=== PATIENT | male | born 1955 | race Caucasian/White ===

== ENCOUNTER → 2023-06-28 08:51 | Outpatient (REF) | payer OTHER, SELFPAY | LOC: RAD 08:51 | PROVIDERS: ATTENDING PHYSICIAN Specialist; FAMILY PHYSICIAN Family Medicine | DX: N18.4 Chronic kidney disease, stage 4 (severe) (principal); I10 Essential (primary) hypertension; N17.9 Acute kidney failure, unspecified | CPT/HCPCS: 76770 ==

== ENCOUNTER 2024-02-24 06:12 | Day surgery (SDC) | payer OTHER, SELFPAY ==
[2024-02-22 11:26] LABS: Hematocrit 30.9 % (39.0-52.0); Hemoglobin 10.6 g/dL (13.0-18.0); Mean Corp Hgb Conc. 34.3 g/dL (33.0-37.0); Mean Corpuscular Hgb 34.2 pg (27.0-31.0); Mean Corpuscular Volume 99.7 fL (80.0-94.0); Mean Platelet Volume 9.6 fL (7.4-10.4); Platelet Count 162 10^3/uL (130-400); Red Cell Dist. Width 13.8 % (11.5-14.5)
[2024-02-22 12:15] VITALS: BMI 24.2
[2024-02-22 12:22] LABS: Blood Urea Nitrogen 44 mg/dl (9-20); Calcium 8.5 mg/dl (8.4-10.2); Carbon Dioxide 21 mmol/L (22-30); Chloride 99 mmol/L (98-107); Estimated Creatinine Clearance 17 ml/min; Glucose 101 mg/dl (70-99); Potassium 4.1 mmol/L (3.5-5.1); Sodium 133 mmol/L (135-145); eGFR 16.73
--- NOTE | 2024-02-22 15:50 | PTCARENOTE ---
Patients 02/21 Creat 3.8- GFR 16.73- Shruti @ Dr. Bennett office notified
[2024-02-24] VITALS (8 sets, daily range): BP systolic 110–126; BP diastolic 60–75; BMI 24.2
[2024-02-24] MEDS: Pyridium 200 MG PO (06:28)
== END 2024-02-24 09:40 | disposition home or self-care (01) ==
LOC: SDS 06:12
PROVIDERS: ATTENDING PHYSICIAN Specialist; FAMILY PHYSICIAN Family Medicine; OTHER PHYSICIAN Urology
DX: N31.9 Neuromuscular dysfunction of bladder, unspecified (principal); N13.70 Vesicoureteral-reflux, unspecified; N40.1 Benign prostatic hyperplasia with lower urinary tract symptoms
CPT/HCPCS: 52281; 36415; 80048; 85027; 93005; J0585

== ENCOUNTER → 2024-05-08 08:55 | Outpatient (REF) | payer OTHER, SELFPAY | LOC: RAD 08:55 | PROVIDERS: ATTENDING PHYSICIAN Surgery Vascular Surgery; FAMILY PHYSICIAN Family Medicine; OTHER PHYSICIAN Urology | DX: L98.8 Other specified disorders of the skin and subcutaneous tissue (principal); N31.9 Neuromuscular dysfunction of bladder, unspecified; N13.70 Vesicoureteral-reflux, unspecified; N13.39 Other hydronephrosis; N31.8 Other neuromuscular dysfunction of bladder | CPT/HCPCS: 76775; 93985 ==

== ENCOUNTER 2024-05-12 06:23 | Day surgery (SDC) | payer OTHER, SELFPAY | END 2024-05-12 10:52 | disposition home or self-care (01) | LOC: GI 06:23 | PROVIDERS: ATTENDING PHYSICIAN Specialist | DX: Z12.11 Encounter for screening for malignant neoplasm of colon (principal); D64.9 Anemia, unspecified; K57.30 Diverticulosis of large intestine without perforation or abscess without bleeding; D12.0 Benign neoplasm of cecum | CPT/HCPCS: G0121 ==

== ENCOUNTER → 2024-05-15 08:47 | Outpatient (REF) | payer OTHER, SELFPAY | LOC: RCS 08:47 | PROVIDERS: ATTENDING PHYSICIAN Internal Medicine Cardiovascular Disease; FAMILY PHYSICIAN Family Medicine | DX: N18.4 Chronic kidney disease, stage 4 (severe) (principal); Z76.82 Awaiting organ transplant status | CPT/HCPCS: 93306 ==

== ENCOUNTER → 2024-05-16 07:24 | Outpatient (REF) | payer OTHER, SELFPAY | LOC: HWRCS 07:24 | PROVIDERS: ATTENDING PHYSICIAN Internal Medicine Cardiovascular Disease; FAMILY PHYSICIAN Family Medicine | DX: N18.4 Chronic kidney disease, stage 4 (severe) (principal); Z76.82 Awaiting organ transplant status | CPT/HCPCS: 78452; 93017; A9500; J2785 ==

== ENCOUNTER 2024-05-30 06:13 | Day surgery (SDC) | payer OTHER, SELFPAY ==
[2024-05-30 11:20] VITALS: BMI 23.4
[2024-05-30 11:21] VITALS: BP 138/70
[2024-05-30 13:01] VITALS: BP 115/77
[2024-05-30 13:15] VITALS: BP 125/71
[2024-05-30 13:30] VITALS: BP 140/76
== END 2024-05-30 13:45 | disposition home or self-care (01) ==
LOC: SDS 06:13
PROVIDERS: ATTENDING PHYSICIAN Internal Medicine Gastroenterology
DX: D12.0 Benign neoplasm of cecum (principal); K64.0 First degree hemorrhoids
CPT/HCPCS: 45390; 88305

== ENCOUNTER 2024-11-07 06:03 | Day surgery (SDC) | payer OTHER, SELFPAY ==
[2024-11-03 14:14] VITALS: BMI 23.0
[2024-11-03 14:42] LABS: Hematocrit 28.7 % (39.0-52.0); Hemoglobin 10.1 g/dL (13.0-18.0); Mean Corp Hgb Conc. 35.2 g/dL (33.0-37.0); Mean Corpuscular Volume 94.4 fL (80.0-94.0); Platelet Count 188 10^3/uL (130-400); Red Cell Dist. Width 13.0 % (11.5-14.5)
[2024-11-07] VITALS (7 sets, daily range): BP systolic 112–127; BP diastolic 59–70; BMI 23.0
[2024-11-07] MEDS: NORMOSOL-R/PLASMALYTE-A 1000 IV (07:10)
== END 2024-11-07 09:30 | disposition home or self-care (01) ==
LOC: SDS 06:03
PROVIDERS: ATTENDING PHYSICIAN Specialist; FAMILY PHYSICIAN Family Medicine
DX: N35.919 Unspecified urethral stricture, male, unspecified site (principal); N31.9 Neuromuscular dysfunction of bladder, unspecified; N39.0 Urinary tract infection, site not specified
CPT/HCPCS: 52281; 36415; 85027; 93005; J0585

== ENCOUNTER 2024-11-29 06:32 | Day surgery (SDC) | payer OTHER, SELFPAY | END 2024-11-29 10:45 | disposition home or self-care (01) | LOC: GI 06:32 | PROVIDERS: ATTENDING PHYSICIAN Specialist | DX: Z12.11 Encounter for screening for malignant neoplasm of colon (principal); K63.89 Other specified diseases of intestine; K57.30 Diverticulosis of large intestine without perforation or abscess without bleeding; Z86.0101 Personal history of adenomatous and serrated colon polyps | CPT/HCPCS: 45380; 88305 ==